=== PATIENT | male | born 2000 | race African-American/Black ===

== ENCOUNTER 2018-01-05 17:18 | Emergency (ER) | payer BC ==
[2018-01-05] MEDS ORDERED: Ibuprofen TAB* 800 MG PO ONE (17:34)
[2018-01-05] MEDS ORDERED: Dexamethasone TAB* 4 MG PO ONE (17:34)
[2018-01-05] MEDS ORDERED: Amoxicillin PO (*) 250 MG CAP PO ONE (18:13)
--- NOTE | 2018-01-05 18:13 | ED ---
Throat Pain/Nasal Congestion - HPI Summary HPI Summary: 17 male presents with sore throat for the past couple days. He admits to sinus congestion. He denies a history of strep. He states his sore throat has been getting worse. He has been taking ibuprofen for his pain. He states he is able to swallow but has not been able to eat much due to the pain. denies any abdominal pain or nausea. No chest pain or shortness breath. No cough. No ear pain or headache. - History of Current Complaint Chief Complaint: EDThroatPain Time Seen by Provider: 01/05/18 17:30 - Allergies/Home Medications Allergies/Adverse Reactions: Allergies Allergy/AdvReac Type Severity Reaction Status Date / Time No Known Allergies Allergy Verified 01/05/18 17:25 PMH/Surg Hx/FS Hx/Imm Hx Endocrine/Hematology History: Denies: Hx Anticoagulant Therapy Respiratory History: Denies: Hx Asthma Infectious Disease History: No Infectious Disease History: Denies: Traveled Outside the [place] in Last 30 Days - Family History Known Family History: Positive: Hypertension - Social History Alcohol Use: Rare Substance Use Type: Reports: None Smoking Status (MU): Never Smoked Tobacco Review of Systems Negative: Fever Positive: Sore Throat, Nasal Discharge Negative: Chest Pain Negative: Shortness Of Breath All Other Systems Reviewed And Are Negative: Yes Physical Exam Triage Information Reviewed: Yes Vital Signs On Initial Exam: Initial Vitals Temp Pulse Resp BP Pulse Ox 99.0 F 85 16 138/65 99 01/05/18 17:23 01/05/18 17:23 01/05/18 17:23 01/05/18 17:23 01/05/18 17:23 Vital Signs Reviewed: Yes Appearance: Positive: Well-Appearing Skin: Positive: Warm, Dry Head/Face: Positive: Normal Head/Face Inspection Eyes: Positive: Normal, EOMI, MORENA, Conjunctiva Clear ENT: Positive: Pharyngeal erythema, Tonsillar swelling - +3, Uvula midline, Other - soft palate symmetric. has strawberry tongue. Negative: Tonsillar exudate, Trismus, Muffled voice Respiratory/Lung Sounds: Positive: Clear to Auscultation, Breath Sounds Present Cardiovascular: Positive: Normal, RRR Abdomen Description: Positive: Nontender, Soft Bowel Sounds: Positive: Present Musculoskeletal: Positive: Normal Neurological: Positive: Normal Psychiatric: Positive: Normal Diagnostics - Vital Signs Vital Signs Temp Pulse Resp BP Pulse Ox 01/05/18 17:23 99.0 F 85 16 138/65 99 - Laboratory Lab Results: Lab Results 01/05/18 Range/Units 17:52 Group A Strep Rapid Negative (Negative) Lab Statement: Any lab studies that have been ordered have been reviewed, and results considered in the medical decision making process. EENT Course/Dx - Course Course Of Treatment: 17 male presents with sore throat for the past couple days. He admits to sinus congestion. He denies a history of strep. He states his sore throat has been getting worse. He has been taking ibuprofen for his pain. He states he is able to swallow but has not been able to eat much due to the pain. denies any abdominal pain or nausea. No chest pain or shortness breath. No cough. No ear pain or headache. On exam pharynx erythematous with tonsils +3. Has a strawberry tongue and smells like strept. Uvula midline. Soft palate symmetric. Strep is negative. Strep is negative strep home. Will treat strep with amoxicillin. We'll place and Decadron. Patient understands agrees with plan. - Differential Diagnoses Differential Diagnoses: Pharyngitis, Tonsilitis, URI/Bronchitis - Diagnoses Provider Diagnoses: Pharyngitis Discharge - Sign-Out/Discharge Documenting (check all that apply): Discharge/Admit/Transfer - Discharge Plan Condition: Good Disposition: HOME Prescriptions: Amoxicillin PO (*) [Amoxicillin 500 MG CAP*] 500 mg PO Q12H #19 cap Dexamethasone TAB* [Decadron TAB*] 4 mg PO DAILY #4 tab Magic Mouth Was-FREDO/MAAL/LIDO* 5 ml SWISH SPIT QID #100 ml Patient Education Materials: Pharyngitis (ED) Referrals: [facility] [Primary Care Provider] - Additional Instructions: Magic mouthwash 5ml swish and spit can use 4x a day Take antibiotic twice a day for 10 days Take steroid once a day for 5 days Take Tylenol or ibuprofen for pain/fever every 6 hours Can gargle salt water, use cough drops or products such as cloraseptic spray for pain Return to ED if develop difficulty breathing or unable to manage secretions, any new or worsening symptoms - Billing Disposition and Condition Condition: GOOD Disposition: HOME
[2018-01-05 18:33] VITALS: BP 126/65
== END 2018-01-05 18:32 | disposition home or self-care (01) ==
LOC: ED 17:18
DX: J02.9 Acute pharyngitis, unspecified (principal)
CPT/HCPCS: 87651; 99282; A9270-GY; J8540